=== PATIENT | female | born 1970 | race Caucasian/White ===

== ENCOUNTER 2017-12-25 10:20 | Emergency (ER) | payer OTHER | END 2017-12-25 10:30 | disposition home or self-care (01) | LOC: E/R 10:20 | DX: M79.642 Pain in left hand (principal); M79.641 Pain in right hand | CPT/HCPCS: 99283; Z7502 ==

== ENCOUNTER 2019-02-01 06:54 | Day surgery (SDC) | payer OTHER ==
[2019-02-01] MEDS ORDERED: FENTAnyl 50 MCG/ML VIAL (10:05)
[2019-02-01] MEDS ORDERED: MIDAZOLAM 1 MG/ML 2 ML INJ ×2 (10:05)
== END 2019-02-01 10:29 | disposition home or self-care (01) ==
LOC: GIL 06:54
DX: Z12.11 Encounter for screening for malignant neoplasm of colon (principal); D12.5 Benign neoplasm of sigmoid colon; D12.3 Benign neoplasm of transverse colon; K64.8 Other hemorrhoids; K64.4 Residual hemorrhoidal skin tags
CPT/HCPCS: 45380; 88305